=== PATIENT | female | born 1975 ===

== ENCOUNTER 2017-12-08 12:14 | Emergency (ER) | payer OTHER ==
[2017-12-08 12:18] VITALS: BMI 31.8
[2017-12-08 12:19] VITALS: RESP 18
[2017-12-08] MEDS ORDERED: Sodium Chloride 0.9% 1,000 ML IV STA (12:59)
--- NOTE | 2017-12-08 13:02 | ED PDOC ---
Arrival/HPI - General Chief Complaint: Headache Time Seen by Provider: 12/08/17 12:58 Historian: Patient - History of Present Illness Narrative History of Present Illness (Text): 12/08/17 12:58 42 year old female, with no significant past medical history, who presents to the emergency department complaining of nausea, vomiting, and headaches since yesterday. Patient notes associated productive cough, chest pain with cough, right ear pain with cough, and a sore throat. Patient notes headache is similar to previous migraine. Patient notes last night she couldn't sleep due to coughing. Patient notes sick contact with boyfriend, who is also in the Emergency department being treated for similar symptoms. Patient denies any fever, chills, shortness of breath, diarrhea, back pain, neck pain, dizziness, or any other complaints. Time/Duration: 24 hours Symptom Onset: Gradual Symptom Course: Unchanged Activities at Onset: Light Context: Home Past Medical History - Provider Review Nursing Documentation Reviewed: Yes - Infectious Disease Hx of Infectious Diseases: None - Neurological Hx Migraine: Yes - Psychiatric Hx Substance Use: No - Surgical History Hx Section: Yes (x2) Hx Tubal Ligation: Yes - Anesthesia Hx Anesthesia: Yes Hx Anesthesia Reactions: No Hx Malignant Hyperthermia: No Family/Social History - Physician Review Nursing Documentation Reviewed: Yes Family/Social History: Unknown Family HX Smoking Status: Never Smoked Hx Alcohol Use: No Hx Substance Use: No Allergies/Home Meds Allergies/Adverse Reactions: Allergies No Known Allergies Allergy (Verified 12/08/17 12:18) Review of Systems - Physician Review All systems were reviewed & negative as marked: Yes - Review of Systems Constitutional: Normal Eyes: Normal ENT: Sore Throat Respiratory: Cough, Sputum. absent: SOB Cardiovascular: Chest Pain (chest pain with cough) Gastrointestinal: Nausea, Vomiting Genitourinary Female: Normal. absent: Dysuria, Frequency Musculoskeletal: Normal. absent: Back Pain, Neck Pain Skin: Normal. absent: Rash Neurological: Headache. absent: Dizziness Endocrine: Normal Hemo/Lymphatic: Normal Psychiatric: Normal Physical Exam Vital Signs Reviewed: Yes Vital Signs Temp Pulse Resp BP Pulse Ox 12/08/17 12:19 98.7 F 83 18 135/81 97 Temperature: Afebrile Blood Pressure: Normal Pulse: Regular Respiratory Rate: Normal Appearance: Positive for: Well-Appearing, Non-Toxic, Comfortable Pain Distress: None Mental Status: Positive for: Alert and Oriented X 3 - Systems Exam Head: Present: Atraumatic, Normocephalic Pupils: Present: PERRL Extroacular Muscles: Present: EOMI Conjunctiva: Present: Normal Mouth: Present: Moist Mucous Membranes Neck: Present: Normal Range of Motion Respiratory/Chest: Present: Clear to Auscultation, Good Air Exchange. No: Respiratory Distress, Accessory Muscle Use Cardiovascular: Present: Regular Rate and Rhythm, Normal S1, S2. No: Murmurs Abdomen: No: Tenderness, Distention, Peritoneal Signs Back: Present: Normal Inspection Upper Extremity: Present: Normal Inspection. No: Cyanosis, Edema Lower Extremity: Present: Normal Inspection. No: Edema Neurological: Present: GCS=15, CN II-XII Intact, Speech Normal Skin: Present: Warm, Dry, Normal Color. No: Rashes Psychiatric: Present: Alert, Oriented x 3, Normal Insight, Normal Concentration Medical Decision Making ED Course and Treatment: 12/08/17 13:04 Impression: 42 year old female presents to the emergency department with nausea, vomiting, and headaches. Plan: -- Chest X-ray -- EKG -- Toradol -- Reglan -- Sodium Chloride -- Reassess and disposition Progress Notes: 12/08/17 14:17 Chest X-ray reviewed, shows: IMPRESSION: No active disease. 12/08/17 14:36 Upon reevaluation, patient is feeling ready. Pt is ready for d/c. - RAD Interpretation Radiology Orders: 12/08/17 13:29 CXR [CHEST TWO VIEWS (PA/LAT)] [RAD] Stat - Medication Orders Current Medication Orders: Discontinued Medications Sodium Chloride (Sodium Chloride 0.9%) 1,000 mls @ 999 mls/hr IV .Q1H1M STA Stop: 12/08/17 13:59 Last Admin: 12/08/17 13:19 Dose: 999 mls/hr eMAR Start Stop Document 12/08/17 13:19 HI (Rec: 12/08/17 13:19 [email or web address]) Intravenous Solution Start Date 12/08/17 Start Time 13:19 Ketorolac Tromethamine (Toradol) 30 mg IVP STAT STA Stop: 12/08/17 13:00 Last Admin: 12/08/17 13:19 Dose: 30 mg MAR Pain Assessment Document 12/08/17 13:19 HI (Rec: 12/08/17 13:19 HI [facility] [email or web address]) Pain Reassessment Is this a pain reassessment? No Sleep Is patient sleeping during reassessment? No Presence of Pain Presence of Pain Yes IVP Administration Document 12/08/17 13:19 HI (Rec: 12/08/17 13:19 HI [facility] [email or web address]) Charges for Administration # of IVP Administrations 1 Metoclopramide HCl (Reglan) 10 mg IVP STAT STA Stop: 12/08/17 13:00 Last Admin: 12/08/17 13:19 Dose: 10 mg IVP Administration Document 12/08/17 13:19 HI (Rec: 12/08/17 13:19 [place] [email or web address] Charges for Administration # of IVP Administrations 1 - Scribe Statement The provider has reviewed the documentation as recorded by the Scribe Diana Scott All medical record entries made by the Scribe were at my direction and personally dictated by me. I have reviewed the chart and agree that the record accurately reflects my personal performance of the history, physical exam, medical decision making, and the department course for this patient. I have also personally directed, reviewed, and agree with the discharge instructions and disposition. Disposition/Present on Arrival - Present on Arrival Any Indicators Present on Arrival: No History of DVT/PE: No History of Uncontrolled Diabetes: No Urinary Catheter: No History of Decub. Ulcer: No History Surgical Site Infection Following: None - Disposition Have Diagnosis and Disposition been Completed?: Yes Diagnosis: Migraine, Upper respiratory infection Disposition: HOME/ ROUTINE Disposition Time: 14:45 Condition: GOOD Discharge Instructions (ExitCare): Migraine Headache (DC), Viral Upper Respiratory Infection, Adult (DC) Prescriptions: Ibuprofen [Motrin] 600 mg PO Q6 5 Days #20 tab Referrals: [facility] at [facility] [Outside] - Follow up with primary [facility] at [facility] [Outside] - Follow up with primary [facility] [place] [Outside] - Follow up with primary Forms: [employer] (Sudanese), WORK NOTE
--- NOTE | 2017-12-08 14:09 | RAD ---
Date of service: 12/08/2017 HISTORY: chest pain, cough r/o infiltrate COMPARISON: No prior. TECHNIQUE: Chest PA and lateral FINDINGS: LUNGS: No active pulmonary disease. PLEURA: No significant pleural effusion identified. No pneumothorax apparent. CARDIOVASCULAR: Normal. OSSEOUS STRUCTURES: No significant abnormalities. VISUALIZED UPPER ABDOMEN: Normal. OTHER FINDINGS: None. IMPRESSION: No active disease.
[2017-12-08 15:08] VITALS: BP 134/73; PULSE 70; TEMP 98.6; O2SAT 98
--- NOTE | 2017-12-08 16:15 | CARD ---
APPROVED REPORT Date of service: 12/08/2017 EKG Measurement Heart [id number] VT [id number] [id number] <Conclusion> Normal sinus rhythm Normal ECG
== END 2017-12-08 15:08 | disposition home or self-care (01) ==
LOC: MERGE 12:14 → ED 12:14
DX: G43.909 Migraine, unspecified, not intractable, without status migrainosus (principal); J06.9 Acute upper respiratory infection, unspecified
CPT/HCPCS: 71046; 93005; 96374; 96375; 99285; J1885; J2765; J7030